=== PATIENT | female | born 1985 | race Two or more races ===

== ENCOUNTER 2021-04-25 13:41 | Outpatient (CLI) | payer OTHER | END 2021-04-25 14:50 | disposition home or self-care (01) | LOC: PRENATAL 13:41 | PROVIDERS: ATTEND Obstetrics & Gynecology Maternal & Fetal Medicine | DX: O35.0XX1 Maternal care for (suspected) central nervous system malformation in fetus, fetus 1 (principal); O35.3XX1 Maternal care for (suspected) damage to fetus from viral disease in mother, fetus 1; O98.513 Other viral diseases complicating pregnancy, third trimester; O09.523 Supervision of elderly multigravida, third trimester; O99.213 Obesity complicating pregnancy, third trimester; Z36.89 Encounter for other specified antenatal screening; Z3A.31 31 weeks gestation of pregnancy ==

== ENCOUNTER 2021-05-29 11:38 | Outpatient (CLI) | payer OTHER | END 2021-05-29 12:31 | disposition home or self-care (01) | LOC: PRENATAL 11:38 | PROVIDERS: ATTEND Obstetrics & Gynecology Maternal & Fetal Medicine | DX: O26.843 Uterine size-date discrepancy, third trimester (principal); O09.513 Supervision of elderly primigravida, third trimester; O24.410 Gestational diabetes mellitus in pregnancy, diet controlled; O99.213 Obesity complicating pregnancy, third trimester; Z36.89 Encounter for other specified antenatal screening; Z3A.34 34 weeks gestation of pregnancy ==

== ENCOUNTER 2021-06-09 21:38 | Inpatient (IN) | payer OTHER ==
[~2021-06-09] VITALS: Ht 157.5 cm; Wt 90.7 kg
[2021-06-09] MEDS ORDERED: DIALYVITE 800-1 EACH PO (21:52)
[2021-06-09] MEDS ORDERED: PRENATAL TABLE1 EAC1 PO (21:52)
[2021-06-09] MEDS ORDERED: PROBIOTICOS PO (21:53)
[2021-06-10] MEDS ORDERED: PROBIOTIC1 EAC2 PO (08:18)
== END 2021-06-12 10:59 | disposition home or self-care (01) | DRG 807 ==
LOC: OBS/DEL 21:38 → LDR 06-10 07:50 → OB/GYN 06-10 13:59
PROVIDERS: ADMIT Obstetrics & Gynecology; ATTEND Obstetrics & Gynecology
PROC: 10E0XZZ Delivery of Products of Conception, External Approach (ICD-10-PCS; principal; 2021-06-10)
PROC: 10907ZC Drainage of Amniotic Fluid, Therapeutic from Products of Conception, Via Natural or Artificial Opening (ICD-10-PCS; 2021-06-10)
PROC: 4A1HXFZ Monitoring of Products of Conception, Cardiac Rhythm, External Approach (ICD-10-PCS; 2021-06-10)
DX: O24.420 Gestational diabetes mellitus in childbirth, diet controlled (principal); Z37.0 Single live birth; O99.824 Streptococcus B carrier state complicating childbirth; Z3A.37 37 weeks gestation of pregnancy

== ENCOUNTER 2022-02-24 12:44 | Outpatient (CLI) | payer OTHER ==
[~2022-02-24 12:44] MED LIST: DIALYVITE 800-1 EACH PO; PRENATAL TABLE1 EAC1 PO; PROBIOTIC1 EAC2 PO; PROBIOTICOS PO
== END 2022-02-24 13:45 | disposition home or self-care (01) ==
LOC: PRENATAL 12:44
PROVIDERS: ATTEND Obstetrics & Gynecology Maternal & Fetal Medicine
DX: Z76.1 Encounter for health supervision and care of foundling (principal)

== ENCOUNTER 2022-04-21 13:00 | Outpatient (CLI) | payer OTHER | END 2022-04-21 14:25 | disposition home or self-care (01) | LOC: PRENATAL 13:00 | PROVIDERS: ATTEND Obstetrics & Gynecology Maternal & Fetal Medicine | DX: O35.9XX0 Maternal care for (suspected) fetal abnormality and damage, unspecified, not applicable or unspecified (principal); O35.3XX0 Maternal care for (suspected) damage to fetus from viral disease in mother, not applicable or unspecified; O09.529 Supervision of elderly multigravida, unspecified trimester; O09.219 Supervision of pregnancy with history of pre-term labor, unspecified trimester; O44.00 Complete placenta previa NOS or without hemorrhage, unspecified trimester; Z3A.20 20 weeks gestation of pregnancy ==

== ENCOUNTER 2022-06-16 14:19 | Outpatient (CLI) | payer OTHER | END 2022-06-16 15:05 | disposition home or self-care (01) | LOC: PRENATAL 14:19 | PROVIDERS: ATTEND Obstetrics & Gynecology Maternal & Fetal Medicine | DX: O26.849 Uterine size-date discrepancy, unspecified trimester (principal); O09.219 Supervision of pregnancy with history of pre-term labor, unspecified trimester; O44.00 Complete placenta previa NOS or without hemorrhage, unspecified trimester; O09.529 Supervision of elderly multigravida, unspecified trimester; Z3A.28 28 weeks gestation of pregnancy ==

== ENCOUNTER 2022-07-19 15:47 | Inpatient (IN) | payer OTHER ==
[~2022-07-19] VITALS: Ht 157.5 cm; Wt 82.6 kg
== END 2022-07-21 14:44 | disposition home or self-care (01) | DRG 807 ==
LOC: LDR 15:47 → OB/GYN 15:47
PROVIDERS: ADMIT Obstetrics & Gynecology; ATTEND Obstetrics & Gynecology
PROC: 10E0XZZ Delivery of Products of Conception, External Approach (ICD-10-PCS; principal; 2022-07-19)
PROC: 4A1HXCZ Monitoring of Products of Conception, Cardiac Rate, External Approach (ICD-10-PCS; 2022-07-19)
DX: O60.14X0 Preterm labor third trimester with preterm delivery third trimester, not applicable or unspecified (principal); Z37.0 Single live birth; Z3A.33 33 weeks gestation of pregnancy; Z20.822 Contact with and (suspected) exposure to COVID-19

== ENCOUNTER 2023-05-05 09:30 | Day surgery (SDC) | payer OTHER ==
[2023-04-29 09:32] LABS: URINE APPEARANCE Clear; URINE BILIRRUBIN Negative (NEGATIVE); URINE BLOOD Large; URINE COLOR Yellow; URINE GLUCOSE Negative (NEGATIVE); URINE LEUKOCYTE Negative; URINE NITRATE Negative; URINE PROTEIN Negative (NEGATIVE)
[2023-04-29 09:40] LABS: URINE BACTERIA 94.4 uL (0.0-1933); URINE EPITHELIAL CELLS 3.8 uL (0.0-38.8); URINE RBC 60.5 uL (0.0-20.8); URINE WBC 6.9 uL (0.0-23.2)
[2023-04-29 10:01] LABS: HEMATOCRIT 36.2 % (36.0-45.00); HEMOGLOBIN 11.6 g/dL (12.0-15.00); MEAN CELL VOLUME 86.5 fL (80.00-100.00); MEAN CORPUSCULAR HEMOGLOBIN 27.8 pg (27.00-32.0); MEAN CORPUSCULAR HGB CONC 32.1 g/dl (32.0-36.0); PLATELET COUNT 309 K/uL (150-450); RED BLOOD COUNT 4.18 M/uL (4.00-6.00); RED CELL DISTRIBUTION WIDTH 19.6 % (11.5-14.5)
[2023-04-29 10:27] LABS: INR 1.02; PARTIAL THROMBOPLASTIN TIME 28.3 SECONDS (22.0-34.0); PROTHROMBIN TIME 10.7 SECONDS (9.0-11.5)
[2023-04-29 10:29] LABS: CALCIUM 9.2 mg/dL (8.5-10.1); CREATININE SERUM 0.76 mg/dL (0.55-1.02); GFR 85.17; POTASSIUM 4.25 mEq/L (3.5-5.1)
[~2023-05-05 09:30] MED LIST changes: +LEVSIN/SL0.125 MG; +PEPCID AC20 MG PO
[2023-05-05] MEDS ORDERED: PERCOCET 5-3251 EACH PO (14:25)
== END 2023-05-05 18:00 | disposition home or self-care (01) ==
LOC: CIR.AMB 09:30
PROVIDERS: ATTEND Surgery
DX: K80.10 Calculus of gallbladder with chronic cholecystitis without obstruction (principal); E88.89 Other specified metabolic disorders; R16.0 Hepatomegaly, not elsewhere classified; Z20.822 Contact with and (suspected) exposure to COVID-19